=== PATIENT | female | born 1945 | race Two or more races ===

== ENCOUNTER 2016-11-07 17:58 | Inpatient (IN) | payer MEDICARE, OTHER ==
[~2016-11-07] VITALS: Ht 165.1 cm; Wt 92.3 kg
[2016-11-07 18:58] LABS: Basophils # (auto) 0 uL; Eosinophils # (auto) 0.1 uL; Eosinophils % (auto) 1.8 % (0.0-7.0); Hematocrit 42.7 % (36.0-46.0); Hemoglobin 13.3 g/dL (12.2-16.2); Lymphocytes # (auto) 1.5 uL; Lymphocytes % (auto) 38.9 % (10.0-50.0); Mean Corpuscular Hemoglobin 28.5 pg (28.0-32.0); Mean Corpuscular Hgb Conc. 31.2 g/dL (32.0-36.0); Mean Corpuscular Volume 91.4 fL (80.0-100.0); Mean Platelet Volume 11.6 fL (7.4-10.4); Monocytes # (auto) 0.4 uL; Monocytes % (auto) 10.7 % (0.0-12.0); Neutrophils # (auto) 1.8 uL; Neutrophils % (auto) 47.6 % (37.0-80.0); Platelet Count (auto) 153 10^3/uL (140-450); Red Cell Distribution Width 14.6 % (11.6-16.0); SUSPECT VIEW TRANSMISSION; White Blood Cell 3.8 10^3/uL (4.4-10.8)
[2016-11-07 19:21] LABS: Albumin 3.9 g/dL (3.4-5.0); Alkaline Phosphatase 88 U/L (45-117); Anion Gap 8 (5-15); Aspartate Aminotransferase 29 U/L (15-37); BUN/Creatinine Ratio 17.5; Bilirubin, Total 0.6 mg/dL (0.2-1.0); Blood Urea Nitrogen 22 mg/dL (7-18); Calcium 10.1 mg/dL (8.5-10.1); Carbon Dioxide 27 mmol/L (21-32); Chloride 101 mmol/L (98-107); GFR African American 54 mL/min; GFR Non-African American 44 mL/min; Glucose 107 mg/dL (74-106); Potassium 4.1 mmol/L (3.5-5.1); Sodium 136 mmol/L (136-145); Total Protein 8.3 g/dL (6.4-8.2)
[2016-11-07] MEDS ORDERED: ASPirin 81 mg TAB PO ONE (19:30)
[2016-11-07 19:43] LABS: Partial Thromboplastin Time 25.4 sec (22.64-33.71)
[2016-11-07] MEDS ORDERED: ASPirin 81 mg TAB ONE (19:50)
[2016-11-07 19:57] LABS: INR 1.3 (0.9-1.15); Prothrombin Time 13.4 sec (9.37-12.3)
[2016-11-07 21:18] LABS: Urine Bilirubin Negative (Negative); Urine Blood Negative /uL (Negative); Urine Color Yellow (Yellow); Urine Glucose Normal (Normal); Urine Hyaline Cast FEW /lpf (0 - 2); Urine Ketone Negative (Negative); Urine Mucus FEW (None Seen); Urine Nitrite Negative (Negative); Urine RBC 1 /hpf (0 - 4); Urine Squamous Epithelial Cell FEW /hpf (<5); Urine Urobilinogen Normal (Negative)
[2016-11-07] MEDS ORDERED: ENOXAPARIN SOD 40 MG/0.4 ML SYRINGE SC ONE (23:45)
[2016-11-07] MEDS ORDERED: TEMAZEPAM 15 MG CAP PO PRN (23:45)
[2016-11-07] MEDS ORDERED: DOCUSATE SOD 100 MG CAP PO PRN (23:45)
[2016-11-07] MEDS ORDERED: ONDANSETRON HCL 4 MG/2 ML VIAL IV PRN (23:45)
[2016-11-07] MEDS ORDERED: MORPHINE SULF INJ 2 MG/ML SYRINGE 1ML IV PRN (23:45)
[2016-11-07] MEDS ORDERED: HYDROcodone-ACET 5/325MG TAB PO PRN (23:45)
[2016-11-07] MEDS ORDERED: NITROGLYCERIN 0.4 MG SL TAB SL PRN (23:45)
[2016-11-07] MEDS ORDERED: ACETAMINOPHEN 325 MG TAB PO PRN (23:45)
[2016-11-08 01:50] VITALS: BP 145/85
[2016-11-08 05:00] VITALS: BP 128/79
[2016-11-08 06:00] LABS: Basophils # (auto) 0 uL; Basophils % (auto) 0.4 % (0.0-2.0); Eosinophils # (auto) 0.1 uL; Eosinophils % (auto) 1.6 % (0.0-7.0); Hematocrit 38.3 % (36.0-46.0); Hemoglobin 12.1 g/dL (12.2-16.2); Lymphocytes # (auto) 1.6 uL; Lymphocytes % (auto) 40.1 % (10.0-50.0); Mean Corpuscular Hemoglobin 28.8 pg (28.0-32.0); Mean Corpuscular Hgb Conc. 31.5 g/dL (32.0-36.0); Mean Corpuscular Volume 91.5 fL (80.0-100.0); Mean Platelet Volume 12.1 fL (7.4-10.4); Monocytes # (auto) 0.5 uL; Monocytes % (auto) 12.1 % (0.0-12.0); Neutrophils # (auto) 1.8 uL; Neutrophils % (auto) 45.8 % (37.0-80.0); Platelet Count (auto) 123 10^3/uL (140-450); Red Cell Distribution Width 14.6 % (11.6-16.0); SUSPECT VIEW TRANSMISSION
[2016-11-08 06:07] LABS: Albumin 3.3 g/dL (3.4-5.0); Calcium 9.2 mg/dL (8.5-10.1); Potassium 3.7 mmol/L (3.5-5.1)
[2016-11-08 06:10] LABS: BUN/Creatinine Ratio 18.9
[2016-11-08 06:12] LABS: Bilirubin, Total 0.6 mg/dL (0.2-1.0)
[2016-11-08] MEDS ORDERED: AML5T PO (06:28)
[2016-11-08] MEDS ORDERED: HYDR25TA4 PO (06:28)
[2016-11-08] MEDS ORDERED: ATEN-60 PO (06:28)
[2016-11-08 09:00] VITALS: BP 128/78
[2016-11-08] MEDS: ENOXAPARIN SOD 40 MG/0.4 ML SYRINGE SC SCH (09:56)
[2016-11-08] MEDS: ASPirin 81 mg TAB PO SCH (09:56)
[2016-11-08] MEDS: HCTZ 25 MG TAB PO SCH (09:57)
[2016-11-08] MEDS: amLODIPine BESYLATE 5 MG TAB PO SCH (09:57)
[2016-11-08] MEDS: FAMOTIDINE 20 MG TAB PO SCH ×2 (09:58→21:52)
[2016-11-08] MEDS: ATENOLOL 25 MG TAB PO SCH (09:58)
[2016-11-08] MEDS ORDERED: INFLUENZA QUAD 2016-2017 0.5 ML SYRG IM ONE (10:00)
[2016-11-08] MEDS ORDERED: PNEUMOCOCCAL VACC POLYS 25 MCG/0.5 ML VIAL IM ONE (10:00)
[2016-11-08 13:00] VITALS: BP 120/82
[2016-11-08] MEDS ORDERED: NITROGLYCERIN 0.4 MG SL TAB SL ONE (14:53)
[2016-11-08] MEDS ORDERED: METOPROLOL TARTRATE 1MG/1ML-5ML VIAL IV ONE (14:53)
[2016-11-08 15:24] LABS: Cholesterol 182 mg/dL (<200); HDL Cholesterol 87 mg/dL (40-59); LDL Cholesterol 94 mg/dL (<100); Triglycerides 71 mg/dL (<150)
[2016-11-08 22:00] VITALS: BP 116/70
[2016-11-08] MEDS ORDERED: ATORVASTATIN 20 MG TAB PO SCH (22:00)
[2016-11-09 05:00] VITALS: BP 148/93
[2016-11-09 09:11] VITALS: BP 128/77
[2016-11-09] MEDS: FAMOTIDINE 20 MG TAB PO SCH (10:22)
[2016-11-09] MEDS: ENOXAPARIN SOD 40 MG/0.4 ML SYRINGE SC SCH (10:22)
[2016-11-09] MEDS: ASPirin 81 mg TAB PO SCH (10:22)
[2016-11-09] MEDS: HCTZ 25 MG TAB PO SCH (10:23)
[2016-11-09] MEDS: ATENOLOL 25 MG TAB PO SCH (10:23)
[2016-11-09] MEDS: amLODIPine BESYLATE 5 MG TAB PO SCH (10:24)
[2016-11-09 13:16] VITALS: BP 122/70
[2016-11-09 17:27] VITALS: BP 123/73
[2016-11-09] MEDS ORDERED: APIX5TAB OR (19:38)
== END 2016-11-09 20:15 | disposition home or self-care (01) | DRG 69 ==
LOC: ER 18:04 → TELE 18:05 → TELE-EAST 11-08 01:08
PROVIDERS: ADMIT Internal Medicine; ATTEND Internal Medicine Pulmonary Disease
DX: G45.9 Transient cerebral ischemic attack, unspecified (principal); I48.2 Chronic atrial fibrillation; N18.3 Chronic kidney disease, stage 3 (moderate); I51.7 Cardiomegaly; I12.9 Hypertensive chronic kidney disease with stage 1 through stage 4 chronic kidney disease, or unspecified chronic kidney disease; Z79.82 Long term (current) use of aspirin; Z23 Encounter for immunization
CPT/HCPCS: 36415; 70450; 70551; 71010; 80053; 80061; 80320; 81001; 84484; 85025; 85379; 85610; 85730; 93005; 93306; 93886; 95819; 96372

== ENCOUNTER 2024-03-26 23:03 | Inpatient (IN) | payer MEDICARE ==
[~2024-03-26] VITALS: Ht 167.6 cm; Wt 103.5 kg
[~2024-03-26 23:03] MED LIST: AMLO1TAB23 PO; APIX5TAB OR; ASPI1TAB20 PO; ATEN-60 PO; ESTR1TAB5 PO; TERA1CAP52 PO
[2024-03-26] MEDS: SODIUM CHLORIDE 0.9% 1,000 ML IVB ONE (23:15)
[2024-03-26] MEDS: ONDANSETRON HCL 4 MG/2 ML VIAL IV ONE (23:47)
[2024-03-26] MEDS: MORPHINE SULFATE 4 MG/ML SYR/VIAL IV ONE (23:48)
[2024-03-26] MEDS: PANTOPRAZOLE 40 MG/10 ML VIAL INJ IV ONE (23:48)
[2024-03-26 23:50] LABS: Basophils # (auto) 0 10 ^3/uL (0-0.2); Basophils % (auto) 0.5 % (0.0-2.0); Eosinophils # (auto) 0.1 10 ^3/uL (0-0.8); Eosinophils % (auto) 1.1 % (0.0-7.0); Hemoglobin 12.8 g/dL (12.2-16.2); Lymphocytes # (auto) 1.5 10 ^3/uL (0.4-5.4); Lymphocytes % (auto) 27.7 % (10.0-50.0); Mean Corpuscular Hemoglobin 29.3 pg (28.0-32.0); Mean Corpuscular Volume 88.9 fL (80.0-100.0); Monocytes # (auto) 0.4 10 ^3/uL (0-1.3); Monocytes % (auto) 7.8 % (0.0-12.0); Neutrophils # (auto) 3.4 10 ^3/uL (1.6-8.6); Neutrophils % (auto) 62.9 % (37.0-80.0); Nucleated Red Blood Cells % 0.2 %; Red Blood Cells 4.38 10^6/uL (4.0-5.20); Red Cell Distribution Width 14.4 % (11.8-14.3); White Blood Cell 5.4 10^3/uL (4.4-10.8)
[2024-03-27 00:08] LABS: Albumin 4.5 g/dL (3.2-4.8); Alkaline Phosphatase 66 U/L (46-116); Anion Gap 10 (5-15); Aspartate Aminotransferase 17 U/L (13-40); BUN/Creatinine Ratio 15.8 (10.0-20.0); Bilirubin, Total 0.6 mg/dL (0.2-1.0); Blood Urea Nitrogen 23 mg/dL (9-23); Calcium 10.4 mg/dL (8.7-10.4); Carbon Dioxide 21 mmol/L (20-30); Chloride 105 mmol/L (98-107); Glucose 124 mg/dL (74-106); Lipase 55 U/L (12-53); Potassium 3.9 mmol/L (3.5-5.1); Sodium 136 mmol/L (136-145); Total Protein 7.8 g/dL (5.7-8.2)
[2024-03-27 00:14] LABS: Alanine Aminotransferase < 9 U/L (7-40)
[2024-03-27 00:16] LABS: Lactic Acid w/Reflex 2.6 mmol/L (0.4-2.0)
[2024-03-27 01:00] VITALS: PULSE 67; RESP 24; O2SAT 100
[2024-03-27] MEDS: METOCLOPRAMIDE HCL 5MG/ml INJ 2ml VIAL IV ONE (01:40)
[2024-03-27] MEDS: HYDROmorphone HCL 2 MG/ML VL/or syr IV ONE (01:40)
[2024-03-27] MEDS: SODIUM CHLORIDE 0.9% 500 ML IV ONE (02:04)
[2024-03-27] MEDS: PIPERACILLIN-TAZO 4.5GM 100 ML IV ONE (02:12)
[2024-03-27] MEDS ORDERED: ACETAMINOPHEN 325 MG TAB PO PRN (04:45)
[2024-03-27] MEDS: PANTOPRAZOLE 40 MG TAB PO SCH (06:21)
[2024-03-27 07:23] VITALS: PULSE 69; RESP 10; O2SAT 100
[2024-03-27] MEDS: APIXABAN 5 MG TAB PO SCH (10:17)
[2024-03-27] MEDS: amLODIPine BESYLATE 5 MG TAB PO SCH (10:18)
[2024-03-27] MEDS: ATENOLOL 25 MG TAB PO SCH (10:18)
[2024-03-27 15:22] LABS: Alanine Aminotransferase 14 U/L (7-40); Albumin 4.2 g/dL (3.2-4.8); Alkaline Phosphatase 60 U/L (46-116); Anion Gap 5 (5-15); Aspartate Aminotransferase 35 U/L (13-40); BUN/Creatinine Ratio 15.1 (10.0-20.0); Blood Urea Nitrogen 22 mg/dL (9-23); Calcium 9.7 mg/dL (8.5-10.1); Carbon Dioxide 26 mmol/L (20-30); Chloride 105 mmol/L (98-107); Glucose 110 mg/dL (74-106); Magnesium 2.2 mg/dL (1.6-2.6); Sodium 136 mmol/L (136-145)
[2024-03-27 15:23] LABS: Bilirubin, Total 0.7 mg/dL (0.2-1.0); Total Protein 7.1 g/dL (5.7-8.2)
[2024-03-27] MEDS: HYDROcodone-ACET 5/325MG TAB PO PRN (16:41)
[2024-03-27 19:30] VITALS: PULSE 73; RESP 13; O2SAT 100
[2024-03-27] MEDS ORDERED: ONDANSETRON HCL 4 MG/2 ML VIAL IV PRN (21:45)
[2024-03-27] MEDS: ONDANSETRON HCL 4 MG/2 ML VIAL IV PRN (21:52)
[2024-03-27] MEDS: KETOROLAC TROMETH 30 MG/ML 1ML VIAL IV PRN (21:52)
[2024-03-28] VITALS (9 sets, daily range): BP systolic 108–166; BP diastolic 53–98; PULSE 58–80; RESP 18–20; TEMP 97.6–98.7; O2SAT 94–100
[2024-03-28] MEDS ORDERED: FURO1TAB33 PO (00:45)
[2024-03-28] MEDS ORDERED: METO-289 PO (00:47)
[2024-03-28] MEDS ORDERED: LOSA-533 PO (00:47)
[2024-03-28] MEDS ORDERED: HYDR25TA4 PO (00:47)
[2024-03-28] MEDS ORDERED: NITR0.4S29 SL (00:47)
[2024-03-28 06:50] LABS: Basophils # (auto) 0 10 ^3/uL (0-0.2); Basophils % (auto) 0.3 % (0.0-2.0); Eosinophils # (auto) 0 10 ^3/uL (0-0.8); Eosinophils % (auto) 0.3 % (0.0-7.0); Hematocrit 38.3 % (36.0-46.0); Hemoglobin 12.4 g/dL (12.2-16.2); Lymphocytes # (auto) 0.8 10 ^3/uL (0.4-5.4); Lymphocytes % (auto) 14.2 % (10.0-50.0); Mean Corpuscular Hemoglobin 29.1 pg (28.0-32.0); Mean Corpuscular Hgb Conc. 32.4 g/dL (32.0-36.0); Mean Corpuscular Volume 89.9 fL (80.0-100.0); Monocytes # (auto) 0.4 10 ^3/uL (0-1.3); Monocytes % (auto) 6.3 % (0.0-12.0); Neutrophils # (auto) 4.5 10 ^3/uL (1.6-8.6); Neutrophils % (auto) 78.9 % (37.0-80.0); Red Blood Cells 4.26 10^6/uL (4.0-5.20); Red Cell Distribution Width 14.5 % (11.8-14.3); White Blood Cell 5.7 10^3/uL (4.4-10.8)
[2024-03-28 06:59] LABS: Anion Gap 6 (5-15); Calcium 9.6 mg/dL (8.5-10.1); Carbon Dioxide 26 mmol/L (20-30); Chloride 103 mmol/L (98-107); Potassium 3.4 mmol/L (3.5-5.1); Sodium 135 mmol/L (136-145)
[2024-03-28 07:04] LABS: Glucose 122 mg/dL (74-106)
[2024-03-28 07:05] LABS: BUN/Creatinine Ratio 13.9 (10.0-20.0); Blood Urea Nitrogen 17 mg/dL (9-23)
[2024-03-28] MEDS ORDERED: MORPHINE SULFATE INJ 2 MG/ml SYRG IV PRN (09:30)
[2024-03-28] MEDS: POTASSIUM CHL 20MEQ/100ML 100 ML IV ONE (10:25)
[2024-03-29 01:08] VITALS: BP 116/64; PULSE 68; RESP 18; TEMP 97.9; O2SAT 100
[2024-03-29 05:13] VITALS: BP 134/75; PULSE 69; RESP 18; TEMP 97.6; O2SAT 98
[2024-03-29 07:31] LABS: Basophils # (auto) 0 10 ^3/uL (0-0.2); Basophils % (auto) 0.8 % (0.0-2.0); Eosinophils # (auto) 0.1 10 ^3/uL (0-0.8); Eosinophils % (auto) 2.9 % (0.0-7.0); Hematocrit 36.7 % (36.0-46.0); Hemoglobin 12.3 g/dL (12.2-16.2); Lymphocytes # (auto) 1.3 10 ^3/uL (0.4-5.4); Lymphocytes % (auto) 34.7 % (10.0-50.0); Mean Corpuscular Hemoglobin 29.7 pg (28.0-32.0); Mean Corpuscular Hgb Conc. 33.5 g/dL (32.0-36.0); Mean Corpuscular Volume 88.8 fL (80.0-100.0); Monocytes # (auto) 0.4 10 ^3/uL (0-1.3); Monocytes % (auto) 11.3 % (0.0-12.0); Neutrophils # (auto) 1.9 10 ^3/uL (1.6-8.6); Neutrophils % (auto) 50.3 % (37.0-80.0); Red Blood Cells 4.13 10^6/uL (4.0-5.20); Red Cell Distribution Width 14.4 % (11.8-14.3); White Blood Cell 3.9 10^3/uL (4.4-10.8)
[2024-03-29 07:39] LABS: Alanine Aminotransferase 31 U/L (7-40); Albumin 4.1 g/dL (3.2-4.8); Alkaline Phosphatase 60 U/L (46-116); Anion Gap 6 (5-15); Aspartate Aminotransferase 59 U/L (13-40); BUN/Creatinine Ratio 12.9 (10.0-20.0); Blood Urea Nitrogen 16 mg/dL (9-23); Carbon Dioxide 27 mmol/L (20-30); Chloride 105 mmol/L (98-107); Glucose 90 mg/dL (74-106); Magnesium 2.1 mg/dL (1.6-2.6); Potassium 3.5 mmol/L (3.5-5.1); Sodium 138 mmol/L (136-145)
[2024-03-29 07:40] LABS: Bilirubin, Total 0.9 mg/dL (0.2-1.0); Total Protein 6.9 g/dL (5.7-8.2)
[2024-03-29 07:44] LABS: INR 1.35 (0.9-1.15); Partial Thromboplastin Time 31.5 SEC (24.5-34.5)
[2024-03-29 08:00] VITALS: PULSE 50; RESP 18; O2SAT 99
[2024-03-29] MEDS ORDERED: SODIUM CHLORIDE LOCK 0 ML ONE (08:54)
[2024-03-29] MEDS ORDERED: LIDOCAINE VISCOUS 2% 15ML UD ONE (08:55)
[2024-03-29] MEDS ORDERED: MIDAZOLAM HCL 5 MG/ML-1ML VIAL ONE (08:55)
[2024-03-29] MEDS ORDERED: fentaNYL CITRATE 100 MCG/2 ML VL ONE (08:55)
[2024-03-29] MEDS ORDERED: diphenhdrAMINE HCL 50 MG/1 ML VL ONE (08:55)
[2024-03-29 09:00] VITALS: BP_SYST 122; BP_SYST 136; BP_DIAS 51; BP_DIAS 64; PULSE 50; PULSE 83; RESP 20; TEMP 98.4; TEMP 98.7; O2SAT 94; O2SAT 99
[2024-03-29] MEDS ORDERED: PANT40T PO (10:40)
[2024-03-29 13:00] VITALS: BP 129/71; PULSE 78; RESP 18; TEMP 98.6; O2SAT 97
[2024-03-29 13:40] VITALS: BP 122/51; PULSE 50; RESP 18; TEMP 98.7; O2SAT 99
== END 2024-03-29 15:05 | disposition home or self-care (01) | DRG 392 ==
LOC: EDBD 23:03 → ER 23:03 → OVERFLOW 03-27 04:46 → CENTRAL 03-27 22:30
PROVIDERS: ADMIT Nurse Practitioner; ATTEND Internal Medicine Geriatric Medicine
DX: K21.9 Gastro-esophageal reflux disease without esophagitis (principal); I13.0 Hypertensive heart and chronic kidney disease with heart failure and stage 1 through stage 4 chronic kidney disease, or unspecified chronic kidney disease; E87.20 Acidosis, unspecified; K52.9 Noninfective gastroenteritis and colitis, unspecified; N18.9 Chronic kidney disease, unspecified; I48.91 Unspecified atrial fibrillation; K44.9 Diaphragmatic hernia without obstruction or gangrene; I50.9 Heart failure, unspecified; K57.30 Diverticulosis of large intestine without perforation or abscess without bleeding; K76.0 Fatty (change of) liver, not elsewhere classified; K80.20 Calculus of gallbladder without cholecystitis without obstruction; Z79.01 Long term (current) use of anticoagulants; Z79.899 Other long term (current) drug therapy
CPT/HCPCS: 36415; 76705; 78226; 80048; 80053; 83605; 83690; 83735; 83880; 84484; 85025; 85610; 85730; 86850; 86900; 86901; 87040; 87077; 93005; 93306; 96365; 96375; C9113; G0378; J1885; J2250; J2405; J2543; J3480

== ENCOUNTER 2024-11-21 16:30 | Emergency (ER) | payer MEDICARE ==
[~2024-11-21] VITALS: Ht 165.1 cm; Wt 108.0 kg
[~2024-11-21 16:30] MED LIST changes: -ASPI1TAB20 PO; -ATEN-60 PO; -ESTR1TAB5 PO; +FURO1TAB33 PO; +HYDR25TA4 PO; +LOSA-533 PO; +METO-289 PO; +NITR0.4S29 SL; +PANT40T PO; -TERA1CAP52 PO
[2024-11-21 16:40] VITALS: BP 165/79
--- NOTE | 2024-11-21 17:10 | ED.PDOC ---
GI ASSESSMENT HPI Comments 79 y/o F, presents to the ED for CC of black stool. Patient states, she has been experiencing melena colored stools x1day. Patient comments on, experiencing similar symptoms in the past with bright red colored stools but never this dark. Patient denies fever, abdominal pain, constipation, or N/V/D. No other symptoms or modifying factors at this time. Chief Complaint: GI Bleed Time Seen by MD: 17:00 Primary Care Provider: ANGELA SANTANA Reviewed Notes: Nurses Notes, Medications, Allergies Allergies: Coded Allergies: NO KNOWN ALLERGIES (Unverified , 11/07/16) Home Meds Active Scripts Pantoprazole Sodium Sesquihydr (Pantoprazole Sodium) 40 Mg Tab, 40 MG PO DAILY@0600 for 30 Days, #30 TAB 2 Refills Prov:JOHN LAROSE MD 03/29/24 Reported Medications Nitroglycerin (NTROSTAT SUBLINGUAL) 0.4 Mg Sl, 0.4 MG SL PRN, TAB *MAY REPEAT EVERY 5 MINUTES X 3 TOTAL IF NO RELIEF, INITIATE ANALGESIC THERAPY. NOTIFY PHYSICIAN *Do not crush. 03/28/24 Metoprolol Succinate (Metoprolol Succinate Er) 50 Mg Tab, 150 MG PO DAILY for 30 Days, MG 03/28/24 Losartan Potassium (Losartan Potassium) 25 Mg Tab, 25 MG PO DAILY for 30 Days, MG 03/28/24 Hydrochlorothiazide (Hydrochlorothiazide) 25 Mg Tab, 25 MG PO DAILY for 30 Days, MG 03/28/24 Furosemide (Lasix) 20 Mg Tb, 1 TAB PO 2XW, #90 TAB 1 Refill 03/28/24 Amlodipine Besylate (Amlodipine Besylate) 10 Mg Tab, 1 TAB PO DAILY, #30 TAB 5 Refills 01/31/17 Apixaban Base (ELIQUIS) 5 Mg Tab, 5 MG OR BID, #1 TAB 11/09/16 Information Source: Patient Mode of Arrival: Ambulatory Timing: Days Duration: Since onset Prehospital treatment: None Quality: None Vomitus: None Stool: Normal Severity: None Recent: None Pain Location: None Modifying Factors: Nothing Associated sign and symptoms: None Past Medical History PAST MEDICAL HISTORY: AFIB, CHF, HTN Surgical History: 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 Family History Family History: Reviewed,noncontributory to illness Social History Smoker: Non-Smoker Alcohol: Denies ETOH Use Drugs: Denies Drug Use Lives In: Home Constitutional: denies: chills, diaphoresis, fatigue, fever, malaise, sweats, weakness, others EENTM: denies: blurred vision, double vision, ear bleeding, ear discharge, ear drainage, ear pain, ear ringing, eye pain, eye redness, hearing loss, mouth pain, mouth swelling, nasal discharge, nose bleeding, nose congestion, nose pain, photophobia, tearing, throat pain, throat swelling, voice changes, others Respiratory: denies: cough, hemoptysis, orthopnea, SOB at rest, shortness of breath, SOB with excertion, stridor, wheezing, others Cardiovascular: denies: chest pain, dizzy spells, diaphoresis, Dyspnea on exertion, edema, irregular heart beat, left arm pain, lightheadedness, palpitations, PND, syncope, others Gastrointestinal: denies: abdomen distended, abdominal pain, blood streaked bowels, constipated, diarrhea, dysphagia, difficulty swallowing, hematemesis, melena, nausea, poor appetite, poor fluid intake, rectal bleeding, rectal pain, vomiting, others Genitourinary: denies: abnormal vagina bleeding, burning, dyspareunia, dysuria, flank pain, frequency, hematuria, incontinence, pain, , vagina discharge, urgency, others Neurological: denies: dizziness, fainting, headache, left sided numbness, left sided weakness, numbness, paresthesia, pre-existing deficit, right sided numbness, right sided weakness, seizure, speech problems, tingling, tremors, weakness, others Musculoskeletal: denies: back pain, gout, joint pain, joint swelling, muscle pain, muscle stiffness, neck pain, others Integumetry: denies: bruises, change in color, change in hair/nails, dryness, laceration, lesions, lumps, rash, wounds, others Allergic/Immunocompromised: denies: Difficulty Healing, Frequent Infections, Hives, Itching, others Hematologic/Lymphatic: denies: anemia, blood clots, easy bleeding, easy bruising, swollen glands, others Endocrine: denies: excessive hunger, excessive sweating, excessive thirst, excessive urination, flushing, intolerance to cold, intolerance to heat, unexplained weight gain, unexplained weight loss, others Psychiatric: denies: anxiety, bipolar disorder, depression, hopeless, panic disorder, schizophrenia, sleepless, suicidal, others All Other Systems: Reviewed and Negative Physical Exam General Appearance: No Apparent Distress HEENT: Normal ENT Inspection, Pharynx Normal, TMs Normal Neck: Full Range of Motion, Non-Tender, Normal, Normal Inspection Respiratory: Chest Non-Tender, Lungs Clear, No Accessory Muscle Use, No Respiratory Distress, Normal Breath Sounds Cardiovascular: No Edema, No JVD, No Murmur, No Gallop, Normal Peripheral Pulses, Regular Rate/Rhythm Breast Exam: Deferred Gastrointestinal: Diffuse, No Organomegaly, Non Tender, No Pulsatile Mass, No rmal Bowel Sounds, Soft Genitalia: Deferred Pelvic: Deferred Rectal: Deferred Extremities: No calf tenderness, Normal capillary refill, Normal inspection, Normal range of motion, Non-tender, No pedal edema Musculoskeletal : Apperance: Normal Neurologic: Alert, lead sql developer II-XII nml as Tested, No Motor Deficits, Normal Affect, Normal Mood, No Sensory Deficits Cerebellar Function: Normal Reflexes: Normal Skin: Dry, Normal Color, Warm Lymphatic: No Adenopathy Was a procedure done? Was a procedure done?: No GI differential Dx Differential Diagnosis: GI hemorrhage X-Ray, Labs, Meds, VS Vital Signs Date Time Temp Pulse Resp B/P (MAP) Pulse Ox O2 Delivery O2 Flow Rate FiO2 11/21/24 18:51 71 20 98 Room Air* 0 21 11/21/24 16:40 97.4 94 16 165/79 (107) 97 Lab Test 11/21/24 18:05 Range/Units White Blood Count 4.8 4.4-10.8 10^3/uL Red Blood Count 4.64 4.0-5.20 10^6/uL Hemoglobin 13.2 12.2-16.2 g/dL Hematocrit 41.1 36.0-46.0 % Mean Corpuscular Volume 88.7 80.0-100.0 fL Mean Corpuscular Hemoglobin 28.5 28.0-32.0 pg Mean Corpuscular Hemoglobin Concent 32.1 32.0-36.0 g/dL Red Cell Distribution Width 14.5 H 11.8-14.3 % Platelet Count 172 140-450 10^3/uL Mean Platelet Volume 10.2 6.9-10.8 fL Neutrophils (%) (Auto) 49.1 37.0-80.0 % Lymphocytes (%) (Auto) 37.8 10.0-50.0 % Monocytes (%) (Auto) 8.9 0.0-12.0 % Eosinophils (%) (Auto) 2.8 0.0-7.0 % Basophils (%) (Auto) 1.4 0.0-2.0 % Neutrophils # (Auto) 2.3 1.6-8.6 10 ^3/uL Lymphocytes # (Auto) 1.8 0.4-5.4 10 ^3/uL Monocytes # (Auto) 0.4 0-1.3 10 ^3/uL Eosinophils # (Auto) 0.1 0-0.8 10 ^3/uL Basophils # (Auto) 0.1 0-0.2 10 ^3/uL Nucleated Red Blood Cells 0.2 % CT ABD PEL: Findings: Lung Bases: No acute or significant lung base finding. Scattered coronary artery calcifications. No pleural effusion. Trace pericardial effusion Liver: The liver is normal in size. No focal lesions. Gallbladder and Biliary Tree: Unremarkable Spleen: Unremarkable Pancreas: The pancreas is grossly normal in appearance. Adrenal Glands: Unremarkable Kidneys: Kidneys are grossly normal without calculi or hydronephrosis. Punctate nonobstructing calculus left kidney Bladder: Grossly unremarkable for degree of distention. Bowel: The stomach is grossly normal in appearance. Small bowel and colon are normal in caliber and distribution. The appendix is not visualized; however, no secondary findings of acute appendicitis identified. Ascites: Absent Lymphadenopathy: No mesenteric, retroperitoneal or periportal lymphadenopathy. Abdominal Wall and Mesentery: U small 2 cm ventral hernia containing small loop of bowel. Vasculature: The visualized abdominal aorta is normal in size and caliber. Evaluation of abdominal and pelvic vessels is limited due to lack of intravenous contrast. Pelvic Organs: Unremarkable Musculoskeletal: No aggressive focal bony lesions, acute fractures or dislocat ion. Soft tissues: Unremarkable IMPRESSION: 1. No findings of bowel obstruction 2. Stool throughout the colon 3. Gallbladder is clear of calcified gallstones 4. No nephrolithiasis or hydronephrosis. 5. No free air or free fluid. Radiation optimization: All CT scans at this facility use at least one of these dose optimization techniques: automated exposure control mA and/or kV adjustment per patient size (includes targeted exams where dose is matched to clinical indication) or iterative reconstruction. HS:Y ATED BY: ASAEL AZAR Jr., DO DICTATED DATE/TIME: 11/21/241748 SIGNED BY: ASAEL AZAR Jr., SIGNED DATE/TIME: 11/21/241748 CC: CT scan of the abdomen and pelvis shows: IMPRESSION: 1. No findings of bowel obstruction 2. Stool throughout the colon 3. Gallbladder is clear of calcified gallstones 4. No nephrolithiasis or hydronephrosis. 5. No free air or free fluid. The patient's CBC is within normal limits We have reviewed all the labs with the patient and she states that she would like to go home. The patient was asymptomatic except for the black stool The patient was being discharged and will follow up with the primary care doctor The patient will return to the emergency department's condition worsens. The patient was told to follow up with the primary care doctor for a referral to the GI doctor Images Reviewed?: Images reviewed and evaluated by me Time of 1ST Reevaluation: 17:30 Reevaluation 1ST: Unchanged Patient Education/Counseling: Diagnosis, Treatment, Prognosis, Need For Follow Up Family Education/Counseling: No Family Present Additional Information - I reviewed the following notes from patient's past medical encounters: 10/27/23 DX: ACUTE ABD PAIN - The following tests were ordered, and results were reviewed by me: CBC, CT ABD PEL - I reviewed and agreed with the following test results read by other provider: CT ABD PEL - I discussed treatments and results with medical personnel and: PATIENT Departure 1 Departure Time of Disposition: 18:35 Impression: Primary Impression: Black stool Disposition: 01 HOME / SELF CARE / HOMELESS Condition: Fair Discharged With: Self Critical Care Note Critical Care Time?: No Stability Stability form required: No Heart Score Heart Score: Heart Score Response (Comments) Value History N/A 0 EKG N/A 0 Age N/A 0 Risk Factors N/A 0 Troponin N/A 0 Total 0 I personally scribed for LARISSA YANG MD ([email or web address]) on 11/21/24 at 17:10. Electronically submitted by Jannette Patel ([email or web address]). I personally scribed for LARISSA YANG MD ([email or web address]) on 11/21/24 at 17:13. Electronically submitted by Jannette Patel ([email or web address]). I personally scribed for LARISSA YANG MD ([email or web address]) on 11/21/24 at 18:37. Electronically submitted by Jannette Patel ([email or web address]). LARISSA YAGN MD Nov 21, 2024 17:10
--- NOTE | 2024-11-21 17:52 | DVH ---
Exam: CT CT AB PEL WO CON-NO ORAL OR IV History: black Stool Comparison Study: None available at time of dictation. TECHNIQUE: Multidetector CT of the abdomen was performed from lung bases to pubic symphysis. Imaging was performed without IV contrast. Axial, coronal and sagittal multiplanar reformats were obtained fr om the axial data set by the technologist. Radiation Dose Information: CT Dose: CTDI volume is 23.66 mGy. Dose-length product is 1207.25 mGy*cm FINDINGS: Evaluation of solid organs is limited due to lack of intravenous contrast use. Findings: Lung Bases: No acute or significant lung base finding. Scattered coronary artery calcifications. No pleural effusion. Trace pericardial effusion Liver: The liver is normal in size. No focal lesions. Gallbladder and Biliary Tree: Unremarkable Spleen: Unremarkable Pancreas: The pancreas is grossly normal in appearance. Adrenal Glands: Unremarkable Kidneys: Kidneys are grossly normal without calculi or hydronephrosis. Punctate nonobstructing calcul us left kidney Bladder: Grossly unremarkable for degree of distention. Bowel: The stomach is grossly normal in appearance. Small bowel and colon are normal in caliber and d istribution. The appendix is not visualized; however, no secondary findings of acute appendicitis id entified. Ascites: Absent Lymphadenopathy: No mesenteric, retroperitoneal or periportal lymphadenopathy. Abdominal Wall and Mesentery: U small 2 cm ventral hernia containing small loop of bowel. Vasculature: The visualized abdominal aorta is normal in size and caliber. Evaluation of abdominal a nd pelvic vessels is limited due to lack of intravenous contrast. Pelvic Organs: Unremarkable Musculoskeletal: No aggressive focal bony lesions, acute fractures or dislocation. Soft tissues: Unremarkable IMPRESSION: 1. No findings of bowel obstruction 2. Stool throughout the colon 3. Gallbladder is clear of calcified gallstones 4. No nephrolithiasis or hydronephrosis. 5. No free air or free fluid. Radiation optimization: All CT scans at this facility use at least one of these dose optimization te chniques: automated exposure control mA and/or kV adjustment per patient size (includes targeted exa ms where dose is matched to clinical indication) or iterative reconstruction. HS:Y
[2024-11-21 18:24] LABS: Basophils # (auto) 0.1 10 ^3/uL (0-0.2); Basophils % (auto) 1.4 % (0.0-2.0); Eosinophils # (auto) 0.1 10 ^3/uL (0-0.8); Eosinophils % (auto) 2.8 % (0.0-7.0); Hematocrit 41.1 % (36.0-46.0); Hemoglobin 13.2 g/dL (12.2-16.2); Lymphocytes # (auto) 1.8 10 ^3/uL (0.4-5.4); Lymphocytes % (auto) 37.8 % (10.0-50.0); Mean Corpuscular Hemoglobin 28.5 pg (28.0-32.0); Mean Corpuscular Hgb Conc. 32.1 g/dL (32.0-36.0); Mean Corpuscular Volume 88.7 fL (80.0-100.0); Monocytes # (auto) 0.4 10 ^3/uL (0-1.3); Monocytes % (auto) 8.9 % (0.0-12.0); Neutrophils # (auto) 2.3 10 ^3/uL (1.6-8.6); Neutrophils % (auto) 49.1 % (37.0-80.0); Nucleated Red Blood Cells % 0.2 %; Platelet Count (auto) 172 10^3/uL (140-450); Red Blood Cells 4.64 10^6/uL (4.0-5.20); Red Cell Distribution Width 14.5 % (11.8-14.3); White Blood Cell 4.8 10^3/uL (4.4-10.8)
[2024-11-21] MEDS ORDERED: PANTOPRAZOLE 40 MG/10 ML VIAL INJ IV ONE (18:45)
[2024-11-21 18:51] VITALS: PULSE 71; RESP 20; O2SAT 98
[2024-11-21 19:31] LABS: INR 1.31 (0.9-1.15); Prothrombin Time 13.5 sec (9.3-11.8)
== END 2024-11-21 20:38 | disposition home or self-care (01) ==
LOC: ER 16:30
DX: K92.1 Melena (principal); I48.91 Unspecified atrial fibrillation; I11.0 Hypertensive heart disease with heart failure; I50.9 Heart failure, unspecified; Z90.49 Acquired absence of other specified parts of digestive tract
CPT/HCPCS: 36415; 74176; 85025; 85610; 85730